=== PATIENT | female | born 1960 | race Caucasian/White ===

== ENCOUNTER 2022-11-08 12:41 | Inpatient (IN) ==
[2022-11-08 15:04] LABS: Basophils % 0.3 % (0.0-0.8); Eosinophils % 0.2 % (0.00-10.9); Hematocrit 40.5 VOL% (35.7-47.0); Hemoglobin 11.2 GM/DL (12.0-16.0); Immature Granulocytes % 0.4 %; Immature Granulocytes Absolute 0.05 #; Lymphocytes # 0.9 10*3/uL (1.4-4.0); Lymphocytes % 7.1 % (21.3-54.2); Mean Corpuscular HGB Conc 27.7 GM/DL (32-36); Mean Corpuscular Volume 81.8 FL (87-102); Monocytes # 0.6 10*3/uL (0.11-0.8); Platelet Count 268 T/CUMM (130-400); Red Blood Count 4.95 MC/CUMM (3.8-5.5); Red Cell Distribution Width 18.8 % (9.3-17.3); White Blood Count 12.9 T/CUMM (4-12)
[2022-11-08 15:31] LABS: INR 0.9; PT Patient Result 10.2 SECS (10.1-12.1); Partial Thromboplastin Time 25.7 SECS (23.7-32.9)
[2022-11-08 15:41] LABS: Alanine Aminotransferase 11 U/L (13-56); Alkaline Phosphatase 70 U/L (45-117); Aspartate Amino Transferase 16 U/L (0-37); Bilirubin,Total < 0.39 MG/DL (0.20-1.00); Blood Urea Nitrogen 11 MG/DL (7-18); Carbon Dioxide 33 MMOL/L (21-32); Chloride 102 MMOL/L (98-107); Glucose 122 MG/DL (74-106); Osmolality,Calculated 276.5 MOS/KG (273-304); Potassium 3.6 MMOL/L (3.5-5.1); Sodium 139 MMOL/L (136-145)
[2022-11-08] MEDS ORDERED: DIAZEPAM 5 MG TABLET PO ONE (15:42)
[2022-11-08] MEDS: SODIUM CHLORIDE 0.45% 1,000 ML IV SCH ×3 (15:53→20:35)
[2022-11-08] MEDS: ALBUTEROL/IPRATROPIUM 3 ML NEB RESP TX SCH (19:49)
[2022-11-08] MEDS: ACETAMINOPHEN 325 MG TABLET PO PRN (20:30)
[2022-11-09] MEDS: ALBUTEROL/IPRATROPIUM 3 ML NEB RESP TX SCH ×4 (01:05→19:40)
[2022-11-09] MEDS ORDERED: HYDROmorphone 1 MG/1 ML SYRINGE IV PRN (01:09)
[2022-11-09] MEDS: oxyCODONE/ACETAMINOPHEN 5-325 MG TABLET PO PRN (01:49)
[2022-11-09 05:42] LABS: Calcium 8.4 MG/DL (8.5-10.1); Osmolality,Calculated 271.8 MOS/KG (273-304); Potassium 3.6 MMOL/L (3.5-5.1)
[2022-11-09] MEDS: SODIUM CHLORIDE 0.45% 1,000 ML IV SCH ×4 (06:13→22:14)
[2022-11-09 06:24] LABS: Basophils # 0.1 10*3/uL (0.0-0.2); Basophils % 0.7 % (0.0-0.8); Eosinophils # 0.2 10*3/uL (0.0-0.87); Eosinophils % 1.6 % (0.00-10.9); Hemoglobin 9.4 GM/DL (12.0-16.0); Immature Granulocytes % 0.7 %; Immature Granulocytes Absolute 0.08 #; Lymphocytes # 2.1 10*3/uL (1.4-4.0); Mean Corpuscular HGB Conc 26.9 GM/DL (32-36); Mean Corpuscular Volume 83.3 FL (87-102); Mean Platelet Volume 9.7 FL (9.6-12.0); Platelet Count 176 T/CUMM (130-400); Red Blood Count 4.19 MC/CUMM (3.8-5.5); Red Cell Distribution Width 18.7 % (9.3-17.3); White Blood Count 11.2 T/CUMM (4-12)
[2022-11-09 06:27] LABS: Hematocrit 34.9 VOL% (35.7-47.0)
[2022-11-09 06:52] LABS: Hypochromia 1+; Microcytosis 1+
[2022-11-09 06:53] LABS: Anisocytosis 1+; Ovalocytes Slight; Platelet Estimate Adequate
[2022-11-09 09:14] LABS: % Iron Saturation 11.7 % (18-50)
[2022-11-09] MEDS: PANTOPRAZOLE 40 MG TABLET PO SCH (09:14)
[2022-11-09] MEDS: LOSARTAN 50 MG TABLET PO SCH (09:14)
[2022-11-09] MEDS: NICOTINE 21 MG/24 HR PATCH TRANSDERM SCH (09:19)
[2022-11-09] MEDS: ONDANSETRON 4 MG/2 ML VIAL IV PRN ×2 (11:36→22:31)
[2022-11-09] MEDS: ACETAMINOPHEN 325 MG TABLET PO PRN ×2 (16:16→22:17)
[2022-11-10] MEDS: oxyCODONE/ACETAMINOPHEN 5-325 MG TABLET PO PRN ×3 (01:15→20:45)
[2022-11-10] MEDS: ALBUTEROL/IPRATROPIUM 3 ML NEB RESP TX SCH ×4 (01:25→19:17)
[2022-11-10 06:15] LABS: Calcium 8.1 MG/DL (8.5-10.1); Osmolality,Calculated 267.1 MOS/KG (273-304); Potassium 3.5 MMOL/L (3.5-5.1)
[2022-11-10 06:47] LABS: Basophils % 0.2 % (0.0-0.8); Eosinophils # 0.1 10*3/uL (0.0-0.87); Eosinophils % 0.5 % (0.00-10.9); Hematocrit 32.2 VOL% (35.7-47.0); Hemoglobin 8.6 GM/DL (12.0-16.0); Immature Granulocytes % 0.6 %; Immature Granulocytes Absolute 0.07 #; Lymphocytes # 0.8 10*3/uL (1.4-4.0); Lymphocytes % 7.2 % (21.3-54.2); Mean Corpuscular HGB Conc 26.7 GM/DL (32-36); Mean Corpuscular Volume 84.7 FL (87-102); Mean Platelet Volume 9.8 FL (9.6-12.0); Monocytes # 0.8 10*3/uL (0.11-0.8); Monocytes % 7.3 % (1.7-12.7); Neutrophils % 84.2 % (38.7-73.9); Platelet Count 174 T/CUMM (130-400); Red Cell Distribution Width 18.2 % (9.3-17.3); White Blood Count 11.3 T/CUMM (4-12)
[2022-11-10 07:06] LABS: Hypochromia 1+; Microcytosis 1+
[2022-11-10 07:07] LABS: Platelet Estimate Adequate; Target Cells Slight
[2022-11-10] MEDS: PANTOPRAZOLE 40 MG TABLET PO SCH (09:09)
[2022-11-10] MEDS: NICOTINE 21 MG/24 HR PATCH TRANSDERM SCH (09:09)
[2022-11-10] MEDS: LOSARTAN 50 MG TABLET PO SCH (09:09)
[2022-11-10] MEDS: DORNASE ALFA 2.5 MG/2.5 ML VIAL RESP TX SCH ×2 (10:47→19:25)
[2022-11-10] MEDS: RACEPINEPHRINE 0.5 ML NEB RESP TX SCH ×3 (10:47→19:11)
[2022-11-10] MEDS: cefTRIAXone 1,000 MG in SODIUM CHLORIDE 0.9% 100 ML IV SCH (11:08)
[2022-11-10] MEDS: SODIUM CHLORIDE 0.45% 1,000 ML IV SCH ×2 (11:20→20:56)
[2022-11-11] MEDS: ALBUTEROL/IPRATROPIUM 3 ML NEB RESP TX SCH ×4 (00:18→19:30)
[2022-11-11] MEDS: SODIUM CHLORIDE 0.45% 1,000 ML IV SCH ×2 (00:27→13:54)
[2022-11-11 05:34] LABS: Calcium 8.5 MG/DL (8.5-10.1); Osmolality,Calculated 259.8 MOS/KG (273-304); Potassium 3.4 MMOL/L (3.5-5.1)
[2022-11-11 06:25] LABS: Basophils % 0.2 % (0.0-0.8); Eosinophils % 0.1 % (0.00-10.9); Hematocrit 33.6 VOL% (35.7-47.0); Hemoglobin 9.3 GM/DL (12.0-16.0); Immature Granulocytes % 0.3 %; Immature Granulocytes Absolute 0.03 #; Lymphocytes # 0.2 10*3/uL (1.4-4.0); Lymphocytes % 1.9 % (21.3-54.2); Mean Corpuscular HGB Conc 27.7 GM/DL (32-36); Mean Corpuscular Volume 82.4 FL (87-102); Mean Platelet Volume 10.3 FL (9.6-12.0); Monocytes # 0.7 10*3/uL (0.11-0.8); Monocytes % 5.8 % (1.7-12.7); Neutrophils % 91.7 % (38.7-73.9); Platelet Count 175 T/CUMM (130-400); Red Blood Count 4.08 MC/CUMM (3.8-5.5); Red Cell Distribution Width 17.5 % (9.3-17.3)
[2022-11-11 07:00] LABS: Band Neutrophils 8 % (0-10); Hypochromia Slight; Lymphocytes 3 % (20-55); Total Cells Counted 100
[2022-11-11 07:01] LABS: Anisocytosis Slight; Stomatocytes 1+
[2022-11-11 07:02] LABS: Giant Platelets Few; Platelet Estimate Adequate
[2022-11-11] MEDS: RACEPINEPHRINE 0.5 ML NEB RESP TX SCH ×4 (07:05→19:40)
[2022-11-11] MEDS: DORNASE ALFA 2.5 MG/2.5 ML VIAL RESP TX SCH ×2 (07:05→19:35)
[2022-11-11] MEDS: LOSARTAN 50 MG TABLET PO SCH (09:54)
[2022-11-11] MEDS: PANTOPRAZOLE 40 MG TABLET PO SCH (09:54)
[2022-11-11] MEDS: NICOTINE 21 MG/24 HR PATCH TRANSDERM SCH (09:55)
[2022-11-11 10:37] LABS: Arterial Base Excess iSTAT 10 MMOL/L (-2.5-2.5); Arterial Bicarbonate iSTAT 34.7 MMOL/L (20-26); Arterial O2 Saturation iSTAT 89 % (95-100); Arterial PCO2 iSTAT 47 MM HG (35-48); Arterial PO2 iSTAT 54 MM HG (80-95); Arterial Total CO2 iSTAT 36 MMO/L (23-27); Arterial pH iSTAT 7.478 (7.35-7.45)
[2022-11-11] MEDS: cefTRIAXone 1,000 MG in SODIUM CHLORIDE 0.9% 100 ML IV SCH (11:35)
[2022-11-11] MEDS ORDERED: MAGNESIUM SULF RIDER 4 GM/100 ML PREMIX IV ONE (14:36)
[2022-11-11 14:42] LABS: Arterial Base Excess iSTAT 10 MMOL/L (-2.5-2.5); Arterial Bicarbonate iSTAT 35.2 MMOL/L (20-26); Arterial O2 Saturation iSTAT 99 % (95-100); Arterial PCO2 iSTAT 51 MM HG (35-48); Arterial PO2 iSTAT 130 MM HG (80-95); Arterial Total CO2 iSTAT 37 MMO/L (23-27)
[2022-11-11] MEDS: LORazepam 2 MG/1 ML VIAL IV PRN (15:50)
[2022-11-11] MEDS: POTASSIUM CHLORIDE RIDER 10 MEQ/100 ML PREMIX IV PRN (23:40)
[2022-11-12] MEDS: ALBUTEROL/IPRATROPIUM 3 ML NEB RESP TX SCH ×4 (00:33→19:39)
[2022-11-12] MEDS: POTASSIUM CHLORIDE RIDER 10 MEQ/100 ML PREMIX IV PRN (01:46)
[2022-11-12] MEDS: SODIUM CHLORIDE 0.45% 1,000 ML IV SCH ×3 (02:25→13:38)
[2022-11-12] MEDS: RACEPINEPHRINE 0.5 ML NEB RESP TX SCH ×4 (07:10→19:39)
[2022-11-12] MEDS: DORNASE ALFA 2.5 MG/2.5 ML VIAL RESP TX SCH ×2 (07:10→19:39)
[2022-11-12 08:56] LABS: Calcium 8.4 MG/DL (8.5-10.1); Osmolality,Calculated 270.8 MOS/KG (273-304); Potassium 3.1 MMOL/L (3.5-5.1)
[2022-11-12 09:02] LABS: Basophils % 0.2 % (0.0-0.8); Eosinophils % 0.3 % (0.00-10.9); Hematocrit 29.3 VOL% (35.7-47.0); Hemoglobin 8.4 GM/DL (12.0-16.0); Immature Granulocytes % 0.6 %; Immature Granulocytes Absolute 0.07 #; Lymphocytes # 0.4 10*3/uL (1.4-4.0); Lymphocytes % 3.2 % (21.3-54.2); Mean Corpuscular HGB Conc 28.7 GM/DL (32-36); Mean Platelet Volume 10.1 FL (9.6-12.0); Monocytes # 0.8 10*3/uL (0.11-0.8); Monocytes % 6.5 % (1.7-12.7); Neutrophils % 89.2 % (38.7-73.9); Platelet Count 184 T/CUMM (130-400); Red Blood Count 3.71 MC/CUMM (3.8-5.5); Red Cell Distribution Width 17.8 % (9.3-17.3); White Blood Count 12.6 T/CUMM (4-12)
[2022-11-12 09:17] LABS: Band Neutrophils 1 % (0-10); Hypochromia 1+; Lymphocytes 4 % (20-55); Microcytosis 1+; Total Cells Counted 100
[2022-11-12 09:18] LABS: Platelet Estimate Adequate; Target Cells Slight
[2022-11-12] MEDS: POTASSIUM CHLORIDE 20 MEQ TABLET PO PRN ×4 (09:44→16:56)
[2022-11-12] MEDS: PANTOPRAZOLE 40 MG TABLET PO SCH (09:44)
[2022-11-12] MEDS: LOSARTAN 50 MG TABLET PO SCH (09:44)
[2022-11-12] MEDS: NICOTINE 21 MG/24 HR PATCH TRANSDERM SCH (09:45)
[2022-11-12] MEDS: cefTRIAXone 1,000 MG in SODIUM CHLORIDE 0.9% 100 ML IV SCH (11:50)
[2022-11-12] MEDS: LORazepam 2 MG/1 ML VIAL IV PRN ×2 (13:36→19:40)
[2022-11-12] MEDS: ACETAMINOPHEN 325 MG TABLET PO PRN (18:02)
[2022-11-13] MEDS: SODIUM CHLORIDE 0.45% 1,000 ML IV SCH ×2 (01:00→14:30)
[2022-11-13] MEDS: ALBUTEROL/IPRATROPIUM 3 ML NEB RESP TX SCH ×4 (02:10→19:35)
[2022-11-13 05:33] LABS: Calcium 8.8 MG/DL (8.5-10.1); Osmolality,Calculated 272.7 MOS/KG (273-304); Potassium 3.7 MMOL/L (3.5-5.1)
[2022-11-13 05:47] LABS: Basophils % 0.2 % (0.0-0.8); Eosinophils # 0.2 10*3/uL (0.0-0.87); Eosinophils % 1.3 % (0.00-10.9); Hematocrit 31.6 VOL% (35.7-47.0); Immature Granulocytes % 0.4 %; Immature Granulocytes Absolute 0.05 #; Lymphocytes # 0.6 10*3/uL (1.4-4.0); Lymphocytes % 4.8 % (21.3-54.2); Mean Corpuscular HGB Conc 27.5 GM/DL (32-36); Mean Corpuscular Volume 82.3 FL (87-102); Mean Platelet Volume 10.7 FL (9.6-12.0); Monocytes # 0.8 10*3/uL (0.11-0.8); Monocytes % 6.6 % (1.7-12.7); Neutrophils % 86.7 % (38.7-73.9); Platelet Count 203 T/CUMM (130-400); Red Blood Count 3.84 MC/CUMM (3.8-5.5); Red Cell Distribution Width 18.3 % (9.3-17.3); White Blood Count 12.6 T/CUMM (4-12)
[2022-11-13 05:52] LABS: Hemoglobin 8.7 GM/DL (12.0-16.0)
[2022-11-13 05:55] LABS: Band Neutrophils 2 % (0-10); Eosinophils 1 % (0-10); Hypochromia Slight; Lymphocytes 5 % (20-55); Microcytosis Slight; Platelet Estimate Normal; Total Cells Counted 100
[2022-11-13] MEDS: DORNASE ALFA 2.5 MG/2.5 ML VIAL RESP TX SCH ×2 (07:10→19:35)
[2022-11-13] MEDS: RACEPINEPHRINE 0.5 ML NEB RESP TX SCH ×4 (07:10→19:35)
[2022-11-13] MEDS: NICOTINE 21 MG/24 HR PATCH TRANSDERM SCH (08:50)
[2022-11-13] MEDS: PANTOPRAZOLE 40 MG TABLET PO SCH (08:50)
[2022-11-13] MEDS: LOSARTAN 50 MG TABLET PO SCH (08:50)
[2022-11-13] MEDS: cefTRIAXone 1,000 MG in SODIUM CHLORIDE 0.9% 100 ML IV SCH (10:00)
[2022-11-13] MEDS: oxyCODONE/ACETAMINOPHEN 5-325 MG TABLET PO PRN (12:24)
[2022-11-14] MEDS: oxyCODONE/ACETAMINOPHEN 5-325 MG TABLET PO PRN (00:05)
[2022-11-14] MEDS: ALBUTEROL/IPRATROPIUM 3 ML NEB RESP TX SCH ×4 (01:04→19:30)
[2022-11-14] MEDS: SODIUM CHLORIDE 0.45% 1,000 ML IV SCH ×2 (03:50→20:22)
[2022-11-14 07:09] LABS: Basophils % 0.2 % (0.0-0.8); Eosinophils # 0.2 10*3/uL (0.0-0.87); Eosinophils % 1.8 % (0.00-10.9); Hematocrit 27.9 VOL% (35.7-47.0); Immature Granulocytes % 0.6 %; Immature Granulocytes Absolute 0.06 #; Lymphocytes # 0.8 10*3/uL (1.4-4.0); Lymphocytes % 7.4 % (21.3-54.2); Mean Corpuscular HGB Conc 27.6 GM/DL (32-36); Mean Corpuscular Volume 80.9 FL (87-102); Mean Platelet Volume 10.2 FL (9.6-12.0); Monocytes % 9.4 % (1.7-12.7); Neutrophils % 80.6 % (38.7-73.9); Platelet Count 196 T/CUMM (130-400); Red Blood Count 3.45 MC/CUMM (3.8-5.5); Red Cell Distribution Width 18.5 % (9.3-17.3); White Blood Count 10.9 T/CUMM (4-12)
[2022-11-14 07:10] LABS: Alanine Aminotransferase < 9 U/L (13-56); Albumin 2.1 G/DL (3.4-5.0); Alkaline Phosphatase 55 U/L (45-117); Aspartate Amino Transferase 6 U/L (0-37); Blood Urea Nitrogen 5 MG/DL (7-18); Calcium 8.5 MG/DL (8.5-10.1); Carbon Dioxide 32 MMOL/L (21-32); Chloride 100 MMOL/L (98-107); Glucose 87 MG/DL (74-106); Hemoglobin 7.7 GM/DL (12.0-16.0); Osmolality,Calculated 268.8 MOS/KG (273-304); Potassium 3.3 MMOL/L (3.5-5.1); Sodium 137 MMOL/L (136-145); Total Protein 5.8 G/DL (6.4-8.2)
[2022-11-14] MEDS: RACEPINEPHRINE 0.5 ML NEB RESP TX SCH ×3 (07:41→19:30)
[2022-11-14] MEDS: DORNASE ALFA 2.5 MG/2.5 ML VIAL RESP TX SCH ×2 (07:48→19:30)
[2022-11-14] MEDS: NICOTINE 21 MG/24 HR PATCH TRANSDERM SCH (08:36)
[2022-11-14] MEDS: LOSARTAN 50 MG TABLET PO SCH (08:36)
[2022-11-14] MEDS: PANTOPRAZOLE 40 MG TABLET PO SCH (08:37)
[2022-11-14] MEDS: ACETAMINOPHEN 325 MG TABLET PO PRN ×3 (09:31→20:49)
[2022-11-14] MEDS ORDERED: MAGNESIUM SULF RIDER 2 GM/50 ML PREMIX IV ONE (11:25)
[2022-11-14] MEDS ORDERED: POTASSIUM CHLORIDE 20 MEQ TABLET PO ONE (11:25)
[2022-11-14] MEDS ORDERED: SODIUM CHLORIDE 0.9% 1,000 ML IV PRN (11:36)
[2022-11-14] MEDS: cefTRIAXone 1,000 MG in SODIUM CHLORIDE 0.9% 100 ML IV SCH (13:22)
[2022-11-14 22:41] LABS: Hemoglobin 9.4 GM/DL (12.0-16.0)
[2022-11-15] MEDS: ALBUTEROL/IPRATROPIUM 3 ML NEB RESP TX SCH ×2 (01:10→06:52)
[2022-11-15] MEDS: ACETAMINOPHEN 325 MG TABLET PO PRN ×2 (03:44→12:02)
[2022-11-15 04:19] LABS: Alanine Aminotransferase < 9 U/L (13-56); Albumin 2.3 G/DL (3.4-5.0); Alkaline Phosphatase 50 U/L (45-117); Aspartate Amino Transferase 9 U/L (0-37); Blood Urea Nitrogen 7 MG/DL (7-18); Calcium 8.3 MG/DL (8.5-10.1); Carbon Dioxide 32 MMOL/L (21-32); Chloride 104 MMOL/L (98-107); Glucose 108 MG/DL (74-106); Osmolality,Calculated 277.4 MOS/KG (273-304); Potassium 3.4 MMOL/L (3.5-5.1); Sodium 140 MMOL/L (136-145); Total Protein 6.1 G/DL (6.4-8.2)
[2022-11-15 04:22] LABS: Basophils % 0.5 % (0.0-0.8); Eosinophils # 0.2 10*3/uL (0.0-0.87); Hematocrit 31.9 VOL% (35.7-47.0); Hemoglobin 9.4 GM/DL (12.0-16.0); Immature Granulocytes % 0.5 %; Immature Granulocytes Absolute 0.04 #; Lymphocytes # 0.8 10*3/uL (1.4-4.0); Lymphocytes % 9.7 % (21.3-54.2); Mean Corpuscular HGB Conc 29.5 GM/DL (32-36); Mean Corpuscular Volume 79.4 FL (87-102); Mean Platelet Volume 10.3 FL (9.6-12.0); Monocytes # 0.9 10*3/uL (0.11-0.8); Neutrophils % 76.3 % (38.7-73.9); Platelet Count 217 T/CUMM (130-400); Red Blood Count 4.02 MC/CUMM (3.8-5.5); Red Cell Distribution Width 17.6 % (9.3-17.3); White Blood Count 8.5 T/CUMM (4-12)
[2022-11-15] MEDS: SODIUM CHLORIDE 0.45% 1,000 ML IV SCH (05:48)
[2022-11-15] MEDS: RACEPINEPHRINE 0.5 ML NEB RESP TX SCH ×2 (06:52→10:38)
[2022-11-15] MEDS: DORNASE ALFA 2.5 MG/2.5 ML VIAL RESP TX SCH (07:02)
[2022-11-15] MEDS ORDERED: POTASSIUM CHLORIDE 20 MEQ TABLET PO ONE (07:37)
[2022-11-15] MEDS: LOSARTAN 50 MG TABLET PO SCH (09:36)
[2022-11-15] MEDS: NICOTINE 21 MG/24 HR PATCH TRANSDERM SCH (09:36)
[2022-11-15] MEDS: PANTOPRAZOLE 40 MG TABLET PO SCH (09:37)
[2022-11-15] MEDS: cefTRIAXone 1,000 MG in SODIUM CHLORIDE 0.9% 100 ML IV SCH (11:50)
[2022-11-15 14:15] VITALS: BP 147/69
== END 2022-11-15 14:44 | disposition home health service (06) | DRG 199 ==
LOC: N.ED 12:41 → N.EDINP 15:58 → SUATTDRO 15:58 → N.TELES 18:41
PROVIDERS: ADMIT Emergency Medicine; ATTEND Internal Medicine